=== PATIENT | female | born 1945 | race Caucasian/White ===

== ENCOUNTER 2023-12-09 18:44 | Emergency (ER) | payer MEDICARE, SELFPAY ==
[2023-12-09 18:49] VITALS: BP 153/90
--- NOTE | 2023-12-09 20:47 | ED.GENMED ---
History of Present Illness
General
Chief Complaint: Head Injury
Source: patient
Time Seen by Provider: 12/09/23 20:42
Travel History
Have you had any contact with someone who has COVID-19?: No
Do you have any symptoms of coronavirus? Fever > 100 degrees, chills, cough, shortness of breath, sore throat, loss of taste or smell, muscle aches, or headache?: No
History of Present Illness
History of Present Illness:
77-year-old female presenting emergency department for evaluation after she excellently tripped while in her garage and fell backwards and towards a ladder striking the back of her head against the ladder noting a small contusion. Patient thought
she should come to the emergency department to get checked out. Currently notes a very slight headache but denies any visual disturbances, focal weakness or numbness, neck pain or stiffness, extremity related concerns or any other injuries.
Patient is not on any anticoagulant medications.
Past History
Past History
ED Past Medical History: Hypercholesterolemia and Psychiatric
ED Past Surgical History: Bowel resection, Cholecystectomy, and Other
Social History
Tobacco: Non-smoker
Alcohol: None
Drug: None
Personal:
Living: with family
Review of Systems
Review of Systems
All Other Systems: ROS reviewed and negative except as documented in HPI and ROS
Phy Exam
Physical Exam
Physical Exam:
GENERAL: Alert , in no apparent distress
EYE: conjunctiva clear
Head: Small contusion to the occiput but without any breaks in the skin or lacerations
NECK: Supple, no midline tenderness
ENT: mmm.
LUNGS: no acute respiratory distress
NEUROLOGICAL: Alert and oriented
SKIN: Warm and dry, skin intact.
MUSCULOSKELETAL: well perfused.
PSYCH: Normal and appropriate interaction.
Scores
Heart Failure Risk
Heart Failure Risk Score: Not Applicable
Heart Score for Chest Pain Patients
STEMI patient?: Not applicable
Withdrawal Assessment of Alcohol
Withdrawal Assessment Completed?: Not applicable
Course
Orders/Labs/Results
Orders:
Orders
12/09/23 18:[address] [CT Head W/o Iv Contrast] Urgent
Comment:
Reason For Exam: FALL HIT POSTERIOR HEAD
Vital Signs
Initial and Last Documented VS:
Initial Vital Signs
Temp Pulse Resp BP Pulse Ox
98.2 F 80 18 153/90 100
12/09/23 18:49 12/09/23 18:49 12/09/23 18:49 12/09/23 18:49 12/09/23 18:49
Last Documented Vital Signs
Temp Pulse Resp BP Pulse Ox
98.2 F 80 18 153/90 100
12/09/23 18:49 12/09/23 18:49 12/09/23 18:49 12/09/23 18:49 12/09/23 18:49
MDM/Problems Addressed
Differential Diagnosis Includes:
Contusion, concussion, intracranial bleeding
MDM/Problems Addressed:
77-year-old female presenting emergency department for evaluation of scalp contusion following an accidental fall. Patient has minimal symptoms at this time. Head CT was ordered from triage which ultimately came back negative for any acute
pathologies. Patient feels well and would like to be discharged home. Motrin/Tylenol as needed for pain. Advise she keep an ice pack over the contusion. Stable for discharge home and aware of return precautions.
*Radiology
Radiology exam reviewed: radiology read reviewed
*Pulse Oximetry
Patient hypoxic: no
*Critical Care Note
Total Time (30-74mins, 75-104mins- exclusive of procedures): Not Applicable
ED Attending Note
-
Portions of this chart may have been created with voice recognition software.� Occasional wrong word or��sound alike� substitutions may have occurred due to the inherent limitations of voice recognition software.
Discharge Plan
Departure
Patient Disposition: Home (Routine Discharge)
Date of Disposition: 12/09/23
Time of Disposition: 20:48
Patient with high blood pressure during this ER visit?: Yes
Discharge Problem:
Accidental fall, Contusion of scalp
Instructions: Minor Head Injury (DC)
Interventions
Interventions:
*Risk Screen - Suicide Last Done: 12/09/23 18:49
*Neglect/Abuse Screening Last Done: 12/09/23 18:49
ED- Neurological Assessment Last Done: 12/09/23 20:47
ED-Skin Assessment Last Done: 12/09/23 20:47
Discharge Date and Time
Print Language: JAPANESE
[2023-12-09 20:53] VITALS: BP 144/79
== END 2023-12-09 21:04 | disposition home or self-care (01) ==
LOC: EMR 18:44
PROVIDERS: EMERGENCY PHYSICIAN Emergency Medicine; FAMILY PHYSICIAN Family Medicine
DX: S00.03XA Contusion of scalp, initial encounter (principal); W01.10XA Fall on same level from slipping, tripping and stumbling with subsequent striking against unspecified object, initial encounter; R03.0 Elevated blood-pressure reading, without diagnosis of hypertension
CPT/HCPCS: 99284; 70450

== ENCOUNTER 2024-10-25 05:09 | Emergency (ER) | payer MEDICARE, SELFPAY ==
[2024-10-25 05:11] VITALS: BP 176/102
[2024-10-25 06:30] VITALS: BMI 41.3
--- NOTE | 2024-10-25 07:26 | ED.GENMED ---
History of Present Illness
General
Chief Complaint: Skin Problem
Source: patient
Time Seen by Provider: 10/25/24 07:06
History of Present Illness
History of Present Illness:
78-year-old female presenting to the emergency department after she noticed yesterday morning around 3 AM pain to her left little finger, felt similar to when she had fractured her little finger however she notes there was never any trauma to the
affected hand/finger. Yesterday patient used anu tape to help with the range of motion which patient did report helped but throughout the course of the day noticed some increased swelling to the dorsum of the hand and this morning upon awakening
noticed it was more erythematous. Pain to the little finger has since subsided however patient notes that it is more now along the dorsal aspect of the hand around the fourth and fifth metacarpal with erythema and edema in this area. Patient is
right-hand dominant. Denies any injury, no fevers, no history of diabetes. No other concerns.
Past History
Past History
ED Past Medical History: Hypercholesterolemia and Psychiatric
ED Past Surgical History: Bowel resection, Cholecystectomy, and Other
Social History
Tobacco: Non-smoker
Alcohol: None
Drug: None
Personal:
Living: with family
Review of Systems
Review of Systems
All Other Systems: ROS reviewed and negative except as documented in HPI and ROS
Phy Exam
Physical Exam
Physical Exam:
GENERAL: Alert , in no apparent distress
EYE: conjunctiva clear
Head: Normocephalic atraumatic
NECK: Supple,
ENT: mmm.
LUNGS: no acute respiratory distress
NEUROLOGICAL: Alert and oriented
SKIN: Warm and dry, dorsum of the left hand has mild to moderate erythema and edema over the fourth and fifth metacarpal with tenderness and increased warmth. Patient does have range of motion of her digits without difficulty however due to the
edema is unable to fully close her hand with gripping. There is no streaking or lymphangitis. Extremity is otherwise warm and well-perfused and neurovascularly intact.
MUSCULOSKELETAL: well perfused.
PSYCH: Normal and appropriate interaction.
Scores
Heart Failure Risk
Heart Failure Risk Score: Not Applicable
Heart Score for Chest Pain Patients
STEMI patient?: Not applicable
Withdrawal Assessment of Alcohol
Withdrawal Assessment Completed?: Not applicable
Course
Orders/Labs/Results
Orders:
Orders
10/25/24 05:14
Hand, Left 3 View [CR Hand - Left Min 3 Views] Urgent
Comment:
Reason For Exam: SWELLING AND PAIN
Vital Signs
Initial and Last Documented VS:
Initial Vital Signs
Temp Pulse Resp BP Pulse Ox
97.4 F 70 24 176/102 98
10/25/24 05:11 10/25/24 05:11 10/25/24 05:11 10/25/24 05:11 10/25/24 05:11
Last Documented Vital Signs
Temp Pulse Resp BP Pulse Ox
97.4 F 71 18 155/97 98
10/25/24 05:11 10/25/24 08:00 10/25/24 08:00 10/25/24 08:00 10/25/24 08:00
MDM/Problems Addressed
Differential Diagnosis Includes:
Cellulitis, arthritis, minimal concern for fracture given no traumatic injuries
MDM/Problems Addressed:
78-year-old female presenting to the ER for evaluation of left hand pain, erythema, edema and increased warmth over the last 24 hours. Presentation seems to be most consistent with a mild cellulitis. Will check x-ray to further evaluate. Plan for
Keflex prescription, compression, ice and elevation. Patient will follow-up with primary care provider early this coming week to ensure stability/improvement. Cellulitic edges were demarcated with skin marker to help patient assess if any
worsening symptoms despite antibiotics.
*Radiology
Radiology exam reviewed: preliminary read by ED provider (Degenerative changes no fracture)
*Pulse Oximetry
Patient hypoxic: no
*Critical Care Note
Total Time (30-74mins, 75-104mins- exclusive of procedures): Not Applicable
Patient Management
Escalation/DeEscalation of care consider admission/obs:
Patient's x-ray without any fractures. There are degenerative changes. Will treat for cellulitis. For Keflex sent to pharmacy. Patient aware of return precautions and will follow-up with primary care provider.
ED Attending Note
-
Portions of this chart may have been created with voice recognition software.� Occasional wrong word or��sound alike� substitutions may have occurred due to the inherent limitations of voice recognition software.
Discharge Plan
Departure
Patient Disposition: Home (Routine Discharge)
Date of Disposition: 10/25/24
Time of Disposition: 07:52
Patient with high blood pressure during this ER visit?: Yes
Discharge Problem:
Cellulitis of hand, left
Instructions: Cellulitis (Skin Infection), Adult (DC)
Prescriptions:
New
cephalexin 500 mg tablet
500 mg PO BID 10 Days Qty: 20 0RF
Interventions
Interventions:
*Risk Screen - Suicide Last Done: 10/25/24 05:11
*General Assessment Last Done: 10/25/24 06:30
*Neglect/Abuse Screening Last Done: 10/25/24 05:11
ED- Fall Risk Assessment Last Done: 10/25/24 08:31
*ED COVID-19 Vaccine History Last Done: 10/25/24 06:30
*Nursing Disposition Last Done: 10/25/24 09:04
ED-Skin Assessment Last Done: 10/25/24 06:30
Discharge Date and Time
Discharge Date/Time: 10/25/24 09:04
Print Language: SLOVENIAN
[2024-10-25 08:00] VITALS: BP 155/97
== END 2024-10-25 09:04 | disposition home or self-care (01) ==
LOC: EMR 05:09
PROVIDERS: EMERGENCY PHYSICIAN Emergency Medicine; FAMILY PHYSICIAN Nurse Practitioner Family
DX: L03.114 Cellulitis of left upper limb (principal); E78.00 Pure hypercholesterolemia, unspecified
CPT/HCPCS: 99283; 73130

== ENCOUNTER 2024-10-26 09:30 | Emergency (ER) | payer MEDICARE, SELFPAY ==
[2024-10-26 09:36] VITALS: BP 124/84
--- NOTE | 2024-10-26 11:08 | ED.GENMED ---
History of Present Illness
General
Chief Complaint: Skin Problem
Time Seen by Provider: 10/26/24 10:32
History of Present Illness
History of Present Illness:
78-year-old female presents the department for evaluation of left hand redness and swelling. Patient was seen here yesterday and diagnosed with cellulitis and started on cephalexin 500 mg twice daily. She states that the erythema seems to have
extended past the skin markings that were made yesterday. No fevers or chills. Does admit the swelling is improved and she can make a fist today.
Past History
Past History
ED Past Medical History: Hypercholesterolemia and Psychiatric
ED Past Surgical History: Bowel resection, Cholecystectomy, and Other
Social History
Tobacco: Non-smoker
Alcohol: None
Drug: None
Personal:
Living: with family
Review of Systems
Review of Systems
Allergies reviewed?: Yes
All Other Systems: ROS reviewed and negative except as documented in HPI and ROS
Phy Exam
Physical Exam
Physical Exam:
GEN: Well appearing, NAD, WDWN
HEENT: Oral mucosa moist, no scleral icterus
Cardiac: Regular rate
Lung: No respiratory distress, no tachypnea
MSK: Diffuse soft tissue swelling of the dorsum of the left hand with faint erythema extending from the fifth MCP joint proximally toward the wrist, no left wrist effusion, no pain with passive range of motion
Skin: Good color, no pallor or jaundice, no rashes
Neuro: AO x3, moves all extremities freely, strength
Psych: Calm, cooperative
Course
Orders/Labs/Results
Orders:
Orders
10/26/24 11:03
Basic Metabolic Panel Urgent
Complete Blood Count/No Diff Urgent
Abnormal Lab Results
10/26/24
11:03
RBC 3.77 L 10^6/uL
(4.20-5.40)
Hgb 11.7 L g/dL
(12.0-16.0)
Hct 34.5 L %
(37.0-47.0)
MPV 11.2 H fL
(7.4-10.4)
BUN 20 H mg/dl
(7-17)
10/26/24 11:03
10/26/24 11:03
Vital Signs
Initial and Last Documented VS:
Initial Vital Signs
Temp Pulse Resp BP Pulse Ox
97.8 F 65 16 124/84 98
10/26/24 09:36 10/26/24 09:36 10/26/24 09:36 10/26/24 09:36 10/26/24 09:36
Last Documented Vital Signs
Temp Pulse Resp BP Pulse Ox
97.8 F 82 20 119/68 98
10/26/24 09:36 10/26/24 11:30 10/26/24 11:30 10/26/24 11:30 10/26/24 11:30
MDM/Problems Addressed
MDM/Problems Addressed:
Patient's hand appears improved by description from charting yesterday. Labs are reassuring. Encouraged the patient to increase her cephalexin to 4 times daily
*Critical Care Note
Total Time (30-74mins, 75-104mins- exclusive of procedures): Not Applicable
ED Attending Note
-
Portions of this chart may have been created with voice recognition software.� Occasional wrong word or��sound alike� substitutions may have occurred due to the inherent limitations of voice recognition software.
Discharge Plan
Departure
Patient Disposition: Home (Routine Discharge)
Date of Disposition: 10/26/24
Time of Disposition: 11:40
Patient with high blood pressure during this ER visit?: No
Discharge Problem:
Cellulitis of finger of left hand
Instructions: Cellulitis (Skin Infection), Adult (DC)
Prescriptions:
New
cephalexin 500 mg capsule
500 mg PO QID Qty: 8 0RF
No Action
cephalexin 500 mg tablet
500 mg PO BID 10 Days Qty: 20 0RF
Referrals:
Urbano Juarez CRNP [Family Provider] -
Activity Restrictions/Additional Instructions:
Increase your cephalexin to four times per day (roughly every 6 hours)
I have prescribed an additional 8 tablets for you to complete a seven day course in total
Interventions
Interventions:
*Risk Screen - Suicide Last Done: 10/26/24 09:36
*General Assessment Last Done: 10/26/24 11:00
*Neglect/Abuse Screening Last Done: 10/26/24 09:36
*ED COVID-19 Vaccine History Last Done: 10/26/24 11:00
*Nursing Disposition Last Done: 10/26/24 12:02
ED-Skin Assessment Last Done: 10/26/24 11:00
Discharge Date and Time
Discharge Date/Time: 10/26/24 12:02
Print Language: AZERI
[2024-10-26 11:10] LABS: Hematocrit 34.5 % (37.0-47.0); Hemoglobin 11.7 g/dL (12.0-16.0); Mean Corp Hgb Conc. 33.9 g/dL (33.0-37.0); Mean Corpuscular Volume 91.5 fL (81.0-99.0); Mean Platelet Volume 11.2 fL (7.4-10.4); Platelet Count 160 10^3/uL (130-400); Red Blood Cell Count 3.77 10^6/uL (4.20-5.40); Red Cell Dist. Width 13.4 % (11.5-14.5); White Blood Cell Count 5.4 10^3/uL (4.8-10.8)
[2024-10-26 11:26] LABS: Blood Urea Nitrogen 20 mg/dl (7-17); Calcium 9.5 mg/dl (8.4-10.2); Carbon Dioxide 30 mmol/L (22-30); Chloride 102 mmol/L (98-107); Glucose 88 mg/dl (70-99); Potassium 4.8 mmol/L (3.5-5.1); Sodium 135 mmol/L (135-145); eGFR > 60.00
[2024-10-26 11:30] VITALS: BP 119/68
== END 2024-10-26 12:02 | disposition home or self-care (01) ==
LOC: EMR 09:30
PROVIDERS: Physician Assistant; EMERGENCY PHYSICIAN Emergency Medicine; FAMILY PHYSICIAN Nurse Practitioner Family
DX: L03.012 Cellulitis of left finger (principal)
CPT/HCPCS: 99283; 80048; 85027

== ENCOUNTER → 2024-11-18 11:49 | Outpatient (REF) | payer MEDICARE, SELFPAY | LOC: RAD 11:49 | PROVIDERS: ATTENDING PHYSICIAN Nurse Practitioner Family | DX: R06.02 Shortness of breath (principal); R79.89 Other specified abnormal findings of blood chemistry | CPT/HCPCS: 71275; Q9967 ==